=== PATIENT | male | born 1975 | race Caucasian/White ===

== ENCOUNTER 2016-08-28 02:55 | Emergency (ER) | payer MEDICAID ==
[2015-05-11 07:49] VITALS: BMI 38.3
[~2016-08-28 02:55] MED LIST: ADIPEX-P37.5 M1 PO; ASCORBIC ACID500 MG PO; COLACE100 MG PO; GLUCOPHAGE500 MG PO; HYDROCODON-ACE1 EAC7 PO; METAMUCIL FIB1 WAFER PO; NEURONTIN 300300 MG PO; TESTOSTERON; VALIUM5 MG PO; VITAMIN D31000 UNI2 PO; ZOLOFT100 MG PO
[2016-08-28 03:45] LABS: APPEARANCE CLEAR (CLEAR); BILIRUBIN NEGATIVE (NEGATIVE); COLOR YELLOW (YELLOW); GLUCOSE 50 mg/dL (NEGATIVE); KETONE NEGATIVE (NEGATIVE); LEUKOCYTE ESTERASE NEGATIVE (NEGATIVE); NITRITE NEGATIVE (NEGATIVE); PH 6.5 (5.0-6.0); PROTEIN NEGATIVE (NEGATIVE); SPECIFIC GRAVITY 1.015 (1.005-1.020); UROBILINOGEN NORMAL (NORMAL)
[2016-08-28 03:57] LABS: BASOPHILS 0.4 % (0.0-2.0); EOSINOPHILS 1.4 % (0-7); HEMOGLOBIN 16.4 g/dL (13.5-17.5); IMMATURE GRANULOCYTES 0.3 % (0-5); MCH 29.2 pg (26.0-34.0); MCHC 35.7 g/dL (31.0-37.0); MEAN PLATELET VOLUME 11.9 fL (7.4-10.4); MONOCYTES 6.8 % (2-11); NEUTROPHILS 55.1 % (40-80); PLATELET COUNT 194 10x3/uL (130-400); RBC 5.61 10x6/uL (4.20-6.10); RDW 12.5 % (11.5-14.5); WBC 9.2 10x3/uL (4.8-10.8)
[2016-08-28 04:12] LABS: ALBUMIN 3.8 g/dL (3.4-5.0); ALKALINE PHOSPHATASE 72 U/L (46-116); ALT (SGPT) 61 U/L (10-68); CALC OSMOLALITY 278 mosm/kg (275-300); CALCIUM 8.9 mg/dL (8.5-10.1); CARBON DIOXIDE 26.1 mmol/L (21.0-32.0); CHLORIDE - SERUM 100 mmol/L (98-107); CREATININE - SERUM 0.7 mg/dL (0.6-1.3); GLUCOSE 170 mg/dL (74-106); POTASSIUM - SERUM 4.2 mmol/L (3.5-5.1); PROTEIN - SERUM 8.1 g/dL (6.4-8.2); SODIUM 137 mmol/L (136-145); UREA NITROGEN 14 mg/dL (7-18); eGFR NON AFRICAN AMERICAN > 90 mL/min (90-120)
== END 2016-08-28 05:29 | disposition home or self-care (01) ==
LOC: D.ER 02:55
PROVIDERS: Emergency Medicine
DX: R10.9 Unspecified abdominal pain (principal); R11.10 Vomiting, unspecified; E11.9 Type 2 diabetes mellitus without complications; B19.20 Unspecified viral hepatitis C without hepatic coma

== ENCOUNTER 2017-09-01 08:08 | Emergency (ER) | payer MEDICAID ==
[2015-05-11 07:49] VITALS: BMI 38.3
[2017-09-01 08:53] LABS: BASOPHILS 0.7 % (0-2); EOSINOPHILS 1.6 % (0-7); HEMATOCRIT 42.1 % (42.0-54.0); IMMATURE GRANULOCYTES 0.2 % (0-5); LYMPHOCYTES 17.6 % (15-50); MCH 29.6 pg (26.0-34.0); MCHC 35.6 g/dL (31.0-37.0); MCV 83.2 fL (80.0-100.0); MEAN PLATELET VOLUME 11.5 fL (7.4-10.4); NEUTROPHILS 72.9 % (40-80); RBC 5.06 10x6/uL (4.20-6.10); RDW 12.5 % (11.5-14.5); WBC 9.2 10x3/uL (4.8-10.8)
[2017-09-01 08:57] LABS: PLATELET COUNT 150 10x3/uL (130-400)
[2017-09-01 08:59] LABS: APPEARANCE CLEAR (CLEAR); COLOR YELLOW (YELLOW)
[2017-09-01 09:00] LABS: BILIRUBIN NEGATIVE (NEGATIVE); GLUCOSE 1000 mg/dL (NEGATIVE); KETONE NEGATIVE (NEGATIVE); NITRITE NEGATIVE (NEGATIVE); PROTEIN NEGATIVE (NEGATIVE); UROBILINOGEN NORMAL (NORMAL)
[2017-09-01 09:05] LABS: AMYLASE - SERUM 28 U/L (25-115); LIPASE 90 U/L (73-393)
[2017-09-01 10:20] LABS: APTT 27.9 SECONDS (22.8-39.4); INR 0.99 (0.85-1.17); PROTIME 12.7 SECONDS (11.6-15.0)
[2017-09-01 10:23] LABS: ALBUMIN 3.6 g/dL (3.4-5.0); ALKALINE PHOSPHATASE 89 U/L (46-116); ALT (SGPT) 59 U/L (10-68); CALC OSMOLALITY 273 mosm/kg (275-300); CALCIUM 8.8 mg/dL (8.5-10.1); CARBON DIOXIDE 23.2 mmol/L (21.0-32.0); CHLORIDE - SERUM 99 mmol/L (98-107); GLUCOSE 250 mg/dL (74-106); POTASSIUM - SERUM 3.7 mmol/L (3.5-5.1); PROTEIN - SERUM 7.8 g/dL (6.4-8.2); SODIUM 133 mmol/L (136-145); UREA NITROGEN 12 mg/dL (7-18); eGFR NON AFRICAN AMERICAN 88 mL/min (90-120)
[2017-09-01 10:25] LABS: UDS - AMPHET POSITIVE QUAL (NEGATIVE); UDS - BARB NEGATIVE QUAL (NEGATIVE); UDS - BENZO NEGATIVE QUAL (NEGATIVE); UDS - COCAINE NEGATIVE QUAL (NEGATIVE); UDS - OPIATE NEGATIVE QUAL (NEGATIVE); UDS - PCP NEGATIVE QUAL (NEGATIVE); UDS - THC NEGATIVE QUAL (NEGATIVE)
[2017-09-01 10:41] LABS: CREATINE KINASE 299 UL (21-232)
[2017-09-01 10:46] LABS: CKMB 1.9 U/L (0.0-3.6)
== END 2017-09-01 13:48 | disposition home or self-care (01) ==
LOC: D.ER 08:08
PROVIDERS: Family Medicine
DX: R10.9 Unspecified abdominal pain (principal); F15.10 Other stimulant abuse, uncomplicated; S43.402A Unspecified sprain of left shoulder joint, initial encounter; X58.XXXA Exposure to other specified factors, initial encounter; Y93.89 Activity, other specified; Y92.89 Other specified places as the place of occurrence of the external cause; F17.200 Nicotine dependence, unspecified, uncomplicated; E11.9 Type 2 diabetes mellitus without complications; B19.20 Unspecified viral hepatitis C without hepatic coma

== ENCOUNTER 2017-09-05 17:47 | Emergency (ER) | payer MEDICAID ==
[2015-05-11 07:49] VITALS: BMI 38.3
[2017-09-05 18:15] LABS: BASOPHILS 0.4 % (0-2); EOSINOPHILS 3.1 % (0-7); HEMATOCRIT 45.4 % (42.0-54.0); HEMOGLOBIN 16.1 g/dL (13.5-17.5); IMMATURE GRANULOCYTES 0.1 % (0-5); LYMPHOCYTES 32.2 % (15-50); MCH 29.9 pg (26.0-34.0); MCHC 35.5 g/dL (31.0-37.0); MCV 84.2 fL (80.0-100.0); MEAN PLATELET VOLUME 11.5 fL (7.4-10.4); MONOCYTES 9.6 % (2-11); NEUTROPHILS 54.6 % (40-80); RBC 5.39 10x6/uL (4.20-6.10); RDW 12.4 % (11.5-14.5); WBC 6.8 10x3/uL (4.8-10.8)
[2017-09-05 18:18] LABS: APPEARANCE CLEAR (CLEAR); BILIRUBIN NEGATIVE (NEGATIVE); COLOR YELLOW (YELLOW); GLUCOSE 1000 mg/dL (NEGATIVE); KETONE NEGATIVE (NEGATIVE); NITRITE NEGATIVE (NEGATIVE); PROTEIN NEGATIVE (NEGATIVE); UROBILINOGEN NORMAL (NORMAL)
[2017-09-05 18:18] LABS: PLATELET COUNT 189 10x3/uL (130-400)
[2017-09-05 18:23] LABS: UDS - AMPHET POSITIVE QUAL (NEGATIVE); UDS - BARB NEGATIVE QUAL (NEGATIVE); UDS - BENZO NEGATIVE QUAL (NEGATIVE); UDS - COCAINE NEGATIVE QUAL (NEGATIVE); UDS - OPIATE NEGATIVE QUAL (NEGATIVE); UDS - PCP NEGATIVE QUAL (NEGATIVE); UDS - THC NEGATIVE QUAL (NEGATIVE)
[2017-09-05 18:28] LABS: ALBUMIN 3.5 g/dL (3.4-5.0); ALKALINE PHOSPHATASE 55 U/L (46-116); ALT (SGPT) 37 U/L (10-68); BILIRUBIN - TOTAL 0.92 mg/dL (0.2-1.3); CALC OSMOLALITY 279 mosm/kg (275-300); CARBON DIOXIDE 31.2 mmol/L (21.0-32.0); CHLORIDE - SERUM 101 mmol/L (98-107); CREATININE - SERUM 0.9 mg/dL (0.6-1.3); GLUCOSE 157 mg/dL (74-106); POTASSIUM - SERUM 4.1 mmol/L (3.5-5.1); PROTEIN - SERUM 8.2 g/dL (6.4-8.2); SODIUM 139 mmol/L (136-145); UREA NITROGEN 10 mg/dL (7-18); eGFR NON AFRICAN AMERICAN > 90 mL/min (90-120)
== END 2017-09-05 22:04 | disposition short-term general hospital (02) ==
LOC: D.ER 17:47
PROVIDERS: Family Medicine
DX: R45.851 Suicidal ideations (principal); F15.10 Other stimulant abuse, uncomplicated; E11.9 Type 2 diabetes mellitus without complications; B19.20 Unspecified viral hepatitis C without hepatic coma; F17.200 Nicotine dependence, unspecified, uncomplicated

== ENCOUNTER 2017-10-11 21:34 | Emergency (ER) | payer MEDICAID ==
[2015-05-11 07:49] VITALS: BMI 38.3
== END 2017-10-11 23:59 | disposition home or self-care (01) ==
LOC: D.ER 21:34
DX: S90.31XA Contusion of right foot, initial encounter (principal); S70.01XA Contusion of right hip, initial encounter; V09.9XXA Pedestrian injured in unspecified transport accident, initial encounter; Y93.01 Activity, walking, marching and hiking; Y92.410 Unspecified street and highway as the place of occurrence of the external cause; S43.402A Unspecified sprain of left shoulder joint, initial encounter; S93.401A Sprain of unspecified ligament of right ankle, initial encounter; E11.8 Type 2 diabetes mellitus with unspecified complications; F17.200 Nicotine dependence, unspecified, uncomplicated

== ENCOUNTER 2017-12-17 13:53 | Emergency (ER) | payer MEDICAID ==
[~2017-12-17] VITALS: Ht 170.2 cm; Wt 92.7 kg
[2017-12-17 14:38] VITALS: Ht 170.2 cm; Wt 92.7 kg
[2017-12-17] MEDS ORDERED: TRULICITY0.75 MG/0. SC (14:42)
[2017-12-17] MEDS ORDERED: CLONAZEPAM2 MG/TAB PO (14:42)
[2017-12-17] MEDS ORDERED: RITALIN20 MG PO (14:43)
[2017-12-17] MEDS ORDERED: LITHIUM CARBON300 MG PO (14:43)
[2017-12-17] MEDS ORDERED: TOPAMAX100 MG PO (14:44)
[2017-12-17 16:00] LABS: HEMATOCRIT 45.3 % (42.0-54.0); HEMOGLOBIN 15.9 g/dL (13.5-17.5); MCHC 35.1 g/dL (31.0-37.0); MCV 82.7 fL (80.0-100.0); MEAN PLATELET VOLUME 11.5 fL (7.4-10.4); NEUTROPHILS 50.1 % (40-80); PLATELET COUNT 183 10x3/uL (130-400); RBC 5.48 10x6/uL (4.20-6.10); RDW 12.7 % (11.5-14.5); WBC 7.7 10x3/uL (4.8-10.8)
[2017-12-17 16:07] LABS: APPEARANCE CLEAR (CLEAR); BILIRUBIN NEGATIVE (NEGATIVE); COLOR YELLOW (YELLOW); GLUCOSE 1000 mg/dL (NEGATIVE); KETONE NEGATIVE (NEGATIVE); NITRITE NEGATIVE (NEGATIVE); PROTEIN NEGATIVE (NEGATIVE); UROBILINOGEN NORMAL (NORMAL)
[2017-12-17 16:32] LABS: ALBUMIN 3.6 g/dL (3.4-5.0); ALKALINE PHOSPHATASE 91 U/L (46-116); ALT (SGPT) 54 U/L (10-68); BILIRUBIN - TOTAL 0.72 mg/dL (0.2-1.3); CALC OSMOLALITY 282 mosm/kg (275-300); CARBON DIOXIDE 28.5 mmol/L (21.0-32.0); CHLORIDE - SERUM 102 mmol/L (98-107); CREATININE - SERUM 0.7 mg/dL (0.6-1.3); GLUCOSE 195 mg/dL (74-106); POTASSIUM - SERUM 4.5 mmol/L (3.5-5.1); PROTEIN - SERUM 7.3 g/dL (6.4-8.2); SODIUM 139 mmol/L (136-145); UREA NITROGEN 12 mg/dL (7-18); eGFR NON AFRICAN AMERICAN > 90 mL/min (90-120)
[2017-12-17] MEDS ORDERED: DOXYCYCLINE HY100 M2 PO (18:18)
[2017-12-17 21:09] VITALS: BP 123/81
== END 2017-12-17 21:09 | disposition home or self-care (01) ==
LOC: D.ER 13:53
PROVIDERS: Emergency Medicine
DX: N45.1 Epididymitis (principal); E11.9 Type 2 diabetes mellitus without complications; F17.200 Nicotine dependence, unspecified, uncomplicated

== ENCOUNTER 2017-12-27 07:03 | Emergency (ER) | payer MEDICAID ==
[~2017-12-27] VITALS: Ht 170.2 cm; Wt 92.7 kg
[~2017-12-27 07:03] MED LIST changes: +CLONAZEPAM2 MG/TAB PO; +DOXYCYCLINE HY100 M2 PO; +LITHIUM CARBON300 MG PO; +RITALIN20 MG PO; +TOPAMAX100 MG PO; +TRULICITY0.75 MG/0. SC
[2017-12-27 07:06] VITALS: Ht 170.2 cm; Wt 92.7 kg
[2017-12-27] MEDS ORDERED: NORCO 7.5/325 T1 TA1 PO (07:34)
[2017-12-27 08:18] VITALS: BP 142/80
== END 2017-12-27 08:19 | disposition home or self-care (01) ==
LOC: D.ER 07:03
DX: S67.22XA Crushing injury of left hand, initial encounter (principal); W23.0XXA Caught, crushed, jammed, or pinched between moving objects, initial encounter; Y93.89 Activity, other specified; Y92.89 Other specified places as the place of occurrence of the external cause; S60.222A Contusion of left hand, initial encounter; E11.9 Type 2 diabetes mellitus without complications; F17.200 Nicotine dependence, unspecified, uncomplicated

== ENCOUNTER 2018-03-15 12:54 | Emergency (ER) | payer MEDICAID ==
[~2018-03-15] VITALS: Ht 170.2 cm; Wt 87.7 kg
[~2018-03-15 12:54] MED LIST changes: +NORCO 7.5/325 T1 TA1 PO
[2018-03-15 13:06] VITALS: BP 131/75; Ht 170.2 cm; Wt 87.7 kg
== END 2018-03-15 15:47 | disposition home or self-care (01) ==
LOC: D.ER 12:54
DX: R51 Headache (principal); Q04.9 Congenital malformation of brain, unspecified; E11.9 Type 2 diabetes mellitus without complications